=== PATIENT | female | born 1935 | race African-American/Black ===

== ENCOUNTER → 2016-11-29 | Outpatient (CLI) | payer MEDICARE ==
[2014-09-20 00:53] VITALS: BP 186/86
--- NOTE | 2016-11-29 14:29 | KCIC ---
EXAM: Bilateral screening mammogram. HISTORY: 80-year-old female presents for screening mammography. TECHNIQUE: Full-field digital craniocaudal and mediolateral oblique views of both breasts are obtained for evaluation. Computer aided detection with Fast OrientationD software version 9.3 was applied. COMPARISON: 11/25/2015, 11/23/2014, 11/20/2013 BREAST PARENCHYMAL DENSITY: Level B - Scattered fibroglandular densities. FINDINGS: There is no new suspicious mass or architectural distortion. There is stable focal asymmetry within the lateral left breast. There is stable nodularity containing clustered calcifications within the retroareolar aspect of the left breast. IMPRESSION: BI-RADS Category 2: Benign finding(s). RECOMMENDATION: Annual mammography is recommended. If your mammogram demonstrates that you have dense breast tissue, which could hide abnormalities, and if you have other risk factors for breast cancer that have been identified, you might benefit from supplemental screening tests that may be suggested by your ordering physician. Dense breast tissue, in and of itself, is a relatively common condition. This information is not provided to cause undue concern, but rather to raise your awareness and to promote discussion with your physician regarding the presence of other risk factors, in addition to dense breast tissue. A report of your mammography results will be sent to you and your physician. You should contact your physician if you have any questions or concerns regarding this report. Mammography is a sensitive method for finding small breast cancers, but it does not detect them all and is not a substitute for careful clinical examination. A negative mammogram does not negate a clinically suspicious finding and should not result in delay in biopsying a clinically suspicious abnormality. PQRS compliance statement - Patient information was entered into a reminder system with a target due date for the next mammogram. "Our facility is accredited by the [employer] Mammography [employer]." Electronically signed by: Carlyn Marina MD (11/29/2016 2:26 PM) [facility]
== END | disposition home or self-care (01) ==
LOC: KCIC MAMMO 13:40
PROVIDERS: ATTEND Family Medicine
DX: Z12.31 Encounter for screening mammogram for malignant neoplasm of breast (principal)
CPT/HCPCS: G0202; 77067

== ENCOUNTER 2017-01-05 23:53 | Emergency (ER) | payer MEDICARE ==
[~2017-01-05] VITALS: Ht 167.6 cm; Wt 83.9 kg
--- NOTE | 2017-01-06 01:15 | PHYS DOC ---
Past Medical History Past Medical History: Arthritis, Diabetes-Type II, Hypertension, Other Additional Past Medical Histor: DVT, shingles Past Surgical History: Cholecystectomy, Hysterectomy Alcohol Use: None Drug Use: None Adult General Chief Complaint Chief Complaint: MECHANICAL FALL HPI HPI Patient is a 81 year old female who presents with complaint of mild headache after suffering a fall earlier today. Patient states that at approximately 3:30 PM the patient suffered a mechanical fall when she turned too quickly and tripped in her home. Patient states that she hit the right side of her face on a desk as she fell. Patient denies loss of consciousness. Patient states that she has an abrasion to the right cheek. Patient states that she has pain along the side of her neck but denies any pain in her cervical spine. Patient states that she also initially had chest pain from the fall which she attributed to the jarring nature of the fall. Patient however states that her chest feels better at this time and she denies any other injuries. The patient states she came to the emergency department tonight his family members urged her to come in to get checked. Patient does admit that she has mild headache at this time. Patient has not taken any medications for her symptoms. Review of Systems Review of Systems Constitutional: Denies fever or chills [] Eyes: Denies change in visual acuity, redness, or eye pain [] HENT: Facial abrasion, denies nasal congestion or sore throat [] Respiratory: Denies cough or shortness of breath [] Cardiovascular: Denies chest pain or edema[] GI: Denies abdominal pain, nausea, vomiting, bloody stools or diarrhea [] : Denies dysuria or hematuria [] Musculoskeletal: Denies back pain or joint pain [] Integument: Denies rash or skin lesions [] Neurologic: Headache, denies focal weakness or sensory changes [] All other systems were reviewed and found to be within normal limits, except as documented in this note. Allergies Allergies Allergies Coded Allergies Type Severity Reaction Last Updated Verified No Known Drug Allergies 04/21/13 No Physical Exam Physical Exam Constitutional: Alert, afebrile, no acute distress. [] HENT: Normocephalic, 1 cm facial abrasion overlying right zygoma, external ears normal, oropharynx moist, no oral exudates, nose normal. [] Eyes: PERRLA, EOMI, conjunctiva normal, no discharge. [] Neck: Normal range of motion, no midline tenderness, right paraspinous muscle tenderness along the distribution of trapezius muscle, supple, no stridor. [] Cardiovascular:Heart rate regular rhythm, no murmur [] Lungs & Thorax: Bilateral breath sounds clear to auscultation [] Abdomen: Bowel sounds normal, soft, no tenderness, no masses, no pulsatile masses. [] Skin: Warm, dry, no erythema, no rash. [] Back: No tenderness, no CVA tenderness. [] Extremities: No tenderness, no cyanosis, no clubbing, ROM intact, no edema. [] Neurologic: Alert and oriented X 3, normal motor function, normal sensory function, no focal deficits noted. [] Current Patient Data Vital Signs Vital Signs Date Time Temp Pulse Resp B/P (MAP) Pulse Ox O2 Delivery O2 Flow Rate FiO2 01/06/17 00:30 98.2 88 18 203/95 (131) 98 Room Air 98.2 EKG EKG Interpreted by me: Heart rate 83, sinus rhythm, prolonged [place] interval, leftward axis, no acute ST/T-wave abnormalities present[] Radiology/Procedures Radiology/Procedures [facility] [address] [place] [address] IMAGING REPORT Signed PATIENT: JASIEL ABBOTT ACCOUNT: [id number] : 1935 LOCATION: ER AGE: 81 SEX: F EXAM STATUS: REG ER ORD. PHYSICIAN: JULIUS AGUILAR MD REASON: fall, headache PROCEDURE: CT HEAD WO CONTRAST INDICATION: headache after fall COMPARISON: None. TECHNIQUE: Axial CT images obtained through the head without intravenous contrast. One or more of the following individualized dose reduction techniques were utilized for this examination: 1. Automated exposure control; 2. Adjustment of the mA and/or kV according to patient size; 3. Use of iterative reconstruction technique. FINDINGS: No intracranial hemorrhage. No midline shift. Basal cisterns patents. Ventricles and sulci are globally prominent. No acute osseous abnormality. Orbits and paranasal sinuses unremarkable. Scattered foci of low attenuation within the white matter. IMPRESSION: 1. No acute intracranial hemorrhage. 2. Scattered regions of low attenuation within the white matter. Non-specific in nature but frequently secondary to chronic small vessel ischemic disease. 3. Prominence of ventricles and sulci which is frequently secondary to age related volume loss. Electronically signed by: Terry Murphy MD (01/06/2017 1:57 AM) [facility] DICTATED and SIGNED BY: TERRY MURPHY MD DATE: 01/06/17 0152 CC: JULIUS AGUILAR MD; SUSHILA QUINTANILLA MD ~ [] Course & Med Decision Making Course & Med Decision Making Pertinent Labs and Imaging studies reviewed. (See chart for details) Patient's CT imaging negative. Patient appears well and does not have evidence of significant traumatic brain injury. Advised patient to continue with Tylenol as needed for muscle pains. Advise follow-up with primary doctor in 3-5 days for reevaluation. Advised return emergency department for any worsening symptoms. Patient voiced understanding and in agreement with treatment plan. Dragon Disclaimer Dragon Disclaimer This electronic medical record was generated, in whole or in part, using a voice recognition dictation system. Departure Departure Impression: Primary Impression: Closed head injury without concussion Additional Impressions: Facial abrasion Chest wall pain Disposition: 01 HOME, SELF-CARE Condition: IMPROVED Referrals: SUSHILA QUINTANILLA MD (PCP) Patient Instructions: Abrasions, Head Injury, Adult Additional Instructions: Follow-up with your primary doctor in 3-5 days for reevaluation. Return to emergency department for any worsening symptoms. Problem Qualifiers Primary Impression: Closed head injury without concussion Encounter type: initial encounter Qualified Codes: S09.90XA - Unspecified injury of head, initial encounter Additional Impressions: Facial abrasion Encounter type: initial encounter Qualified Codes: S00.81XA - Abrasion of other part of head, initial encounter JULIUS AGUILAR MD Jan 06, 2017 01:15
--- NOTE | 2017-01-06 02:01 | RAD ---
INDICATION: headache after fall COMPARISON: None. TECHNIQUE: Axial CT images obtained through the head without intravenous contrast. One or more of the following individualized dose reduction techniques were utilized for this examination: 1. Automated exposure control; 2. Adjustment of the mA and/or kV according to patient size; 3. Use of iterative reconstruction technique. FINDINGS: No intracranial hemorrhage. No midline shift. Basal cisterns patents. Ventricles and sulci are globally prominent. No acute osseous abnormality. Orbits and paranasal sinuses unremarkable. Scattered foci of low attenuation within the white matter. IMPRESSION: 1. No acute intracranial hemorrhage. 2. Scattered regions of low attenuation within the white matter. Non-specific in nature but frequently secondary to chronic small vessel ischemic disease. 3. Prominence of ventricles and sulci which is frequently secondary to age related volume loss. Electronically signed by: Sanket Vail MD (01/06/2017 1:57 AM) [facility]
[2017-01-06 02:24] VITALS: BP 118/60
[2017-01-06] MEDS ORDERED: ACETAMINOPHEN 325 MG TABLET. PO ONE (02:30)
--- NOTE | 2017-01-06 08:03 | EKG ---
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
== END 2017-01-06 02:44 | disposition home or self-care (01) ==
LOC: ER 23:53
DX: S00.81XA Abrasion of other part of head, initial encounter (principal); R07.89 Other chest pain; E11.9 Type 2 diabetes mellitus without complications; I10 Essential (primary) hypertension; Z90.710 Acquired absence of both cervix and uterus; Z90.49 Acquired absence of other specified parts of digestive tract; Z86.718 Personal history of other venous thrombosis and embolism; W01.0XXA Fall on same level from slipping, tripping and stumbling without subsequent striking against object, initial encounter; Y93.89 Activity, other specified; Y99.8 Other external cause status; Y92.099 Unspecified place in other non-institutional residence as the place of occurrence of the external cause
CPT/HCPCS: 70450; 93005; 99284-25

== ENCOUNTER 2017-01-23 16:26 | Inpatient (IN) | payer MEDICARE ==
[~2017-01-23] VITALS: Ht 167.6 cm; Wt 80.3 kg
--- NOTE | 2017-01-23 16:30 | PHYS DOC ---
Past Medical History Past Medical History: Arthritis, Diabetes-Type II, Hypertension, Other Additional Past Medical Histor: DVT, shingles Past Surgical History: Cholecystectomy, Hysterectomy Alcohol Use: None Drug Use: None Adult General Chief Complaint Chief Complaint: LOWER EXT PAIN [facility] HPI Patient is a 81 year old -[place] female who presents with substernal chest heaviness and dyspnea on exertion with right leg swelling since Sunday. She denies any nausea vomiting or diaphoresis associate with this. She states when she was up a flight of steps she feels short of breath. She tried to get into her primary care physician today but was unable to and they told her to go to the ER to make sure she didn't have a blood clot in her leg. Review of Systems Review of Systems Constitutional: Denies fever or chills [] Eyes: Denies change in visual acuity, redness, or eye pain [] HENT: Denies nasal congestion or sore throat [] Respiratory: Denies cough, positive for or shortness of breath on exertion Cardiovascular: No additional information not addressed in HPI [] GI: Denies abdominal pain, nausea, vomiting, bloody stools or diarrhea [] : Denies dysuria or hematuria [] Musculoskeletal: Denies back pain or joint pain [] Integument: Denies rash or skin lesions [] Neurologic: Denies headache, focal weakness or sensory changes [] Endocrine: Denies polyuria or polydipsia [] All other systems were reviewed and found to be within normal limits, except as documented in this note. Current Medications Current Medications Current Medications Medications (Trade) Dose Ordered Sig/Aspen Start Time Stop Time Status Last Admin Dose Admin Info (Do NOT chart on this entry -- for MONITORING) 1 each PRN DAILY PRN 01/23/17 19:45 01/25/17 19:44 Iohexol (Omnipaque 300 Mg/ml) 60 ml 1X ONCE 01/23/17 20:00 01/23/17 20:01 DC 01/23/17 20:22 60 ML Allergies Allergies Allergies Coded Allergies Type Severity Reaction Last Updated Verified indomethacin Allergy Severe Shortness of Air 01/23/17 Yes Physical Exam Physical Exam Constitutional: Well developed, well nourished, no acute distress, non-toxic appearance. [] HENT: Normocephalic, atraumatic, bilateral external ears normal, oropharynx moist, no oral exudates, nose normal. [] Eyes: PERRLA, EOMI, conjunctiva normal, no discharge. [] Neck: Normal range of motion, no tenderness, supple, no stridor. [] Cardiovascular:Heart rate regular rhythm, no murmur [] Lungs & Thorax: Bilateral breath sounds clear to auscultation [] Abdomen: Bowel sounds normal, soft, no tenderness, no masses, no pulsatile masses. [] Skin: Warm, dry, no erythema, no rash. [] Back: No tenderness, no CVA tenderness. [] Extremities: No tenderness, no cyanosis, no clubbing, ROM intact, 1+ right lower extremity edema around her ankle Neurologic: Alert and oriented X 3, normal motor function, normal sensory function, no focal deficits noted. [] Psychologic: Affect normal, judgement normal, mood normal. [] Current Patient Data Vital Signs Vital Signs Date Time Temp Pulse Resp B/P (MAP) Pulse Ox O2 Delivery O2 Flow Rate FiO2 01/23/17 19:45 86 18 169/79 (109) 98 Room Air 01/23/17 16:46 98.6 98.6 Lab Values Laboratory Tests Test 01/23/17 17:20 01/23/17 17:56 01/23/17 18:00 White Blood Count 5.7 x10^3/uL (4.0-11.0) Red Blood Count 4.89 x10^6/uL (3.50-5.40) Hemoglobin 12.9 g/dL (12.0-15.5) Hematocrit 40.1 % (36.0-47.0) Mean Corpuscular Volume 82 fL (79-100) Mean Corpuscular Hemoglobin 26 pg (25-35) Mean Corpuscular Hemoglobin Concent 32 g/dL (31-37) Red Cell Distribution Width 14.7 % (11.5-14.5) H Platelet Count 197 x10^3/uL (140-400) Neutrophils (%) (Auto) 54 % (31-73) Lymphocytes (%) (Auto) 30 % (24-48) Monocytes (%) (Auto) 14 % (0-9) H Eosinophils (%) (Auto) 2 % (0-3) Basophils (%) (Auto) 1 % (0-3) Neutrophils # (Auto) 3.0 x10^3uL (1.8-7.7) Lymphocytes # (Auto) 1.7 x10^3/uL (1.0-4.8) Monocytes # (Auto) 0.8 x10^3/uL (0.0-1.1) Eosinophils # (Auto) 0.1 x10^3/uL (0.0-0.7) Basophils # (Auto) 0.0 x10^3/uL (0.0-0.2) Prothrombin Time 12.2 SEC (11.7-14.0) Prothrombin Time INR 1.0 (0.8-1.1) Sodium Level 136 mmol/L (136-145) Potassium Level 3.9 mmol/L (3.5-5.1) Chloride Level 98 mmol/L (98-107) Carbon Dioxide Level 26 mmol/L (21-32) Anion Gap 12 (6-14) Blood Urea Nitrogen 16 mg/dL (7-20) Creatinine 1.1 mg/dL (0.6-1.0) H Estimated GFR (Cockcroft-Gault) 57.5 Glucose Level 112 mg/dL (70-99) H Calcium Level 10.0 mg/dL (8.5-10.1) Magnesium Level 1.8 mg/dL (1.8-2.4) Total Bilirubin 0.3 mg/dL (0.2-1.0) Direct Bilirubin 0.1 mg/dL (0.0-0.2) Aspartate Amino Transferase (AST) 15 U/L (15-37) Alanine Aminotransferase (ALT) 15 U/L (14-59) Alkaline Phosphatase 37 U/L (46-116) L Creatine Kinase 94 U/L (26-192) Creatine Kinase MB (Mass) 0.5 ng/mL (0.0-3.6) Creatine Kinase MB Relative Index 0.5 % (0-4) Troponin I Quantitative < 0.017 ng/mL (0.000-0.055) LN-Upf-L-Type Natriuretic Peptide 53 pg/mL (0-449) Total Protein 7.8 g/dL (6.4-8.2) Albumin 3.8 g/dL (3.4-5.0) Lipase 248 U/L (73-393) Thyroid Stimulating Hormone (TSH) 2.064 uIU/mL (0.358-3.74) D-Dimer (Alanna) 3.93 ug/mlFEU (0.00-0.50) H Urine Collection Type Unknown Urine Color Yellow Urine Clarity Clear Urine pH 6.0 Urine Specific [place] 1.010 Urine Protein Negative mg/dL (NEG-TRACE) Urine Glucose (UA) Negative mg/dL (NEG) Urine Ketones (Stick) Negative mg/dL (NEG) Urine Blood Negative (NEG) Urine Nitrite Negative (NEG) Urine Bilirubin Negative (NEG) Urine Urobilinogen Dipstick 0.2 mg/dL (0.2 mg/dL) Urine Leukocyte Esterase Negative (NEG) Urine RBC Rare /HPF (0-2) Urine WBC Rare /HPF (0-4) Urine Squamous Epithelial Cells Mod /LPF Urine Bacteria Few /HPF (0-FEW) Urine Opiates Screen Neg (NEG) Urine Methadone Screen Neg (NEG) Urine Barbiturates Neg (NEG) Urine Phencyclidine Screen Neg (NEG) Urine Amphetamine/Methamphetamine Neg (NEG) Urine Benzodiazepines Screen Neg (NEG) Urine Cocaine Screen Neg (NEG) Urine Cannabinoids Screen Neg (NEG) Urine Ethyl Alcohol Neg (NEG) Laboratory Tests 01/23/17 17:20 Laboratory Tests 01/23/17 17:20 EKG EKG EKG shows sinus rhythm with rate of [address] elevations or concerning T-wave inversions, left axis deviation noted, QTC 427 ms, as interpreted by me. Radiology/Procedures Radiology/Procedures One view chest x-rays does not show any focal consolidations, bony abnormality's , pneumothorax, as interpreted by me. Chest x-ray similar to one that was performed on April 21, 2013 [facility] [address] [place] [address] IMAGING REPORT Signed PATIENT: JASIEL ABBOTT ACCOUNT: [id number] : 1935 LOCATION: ER AGE: 81 SEX: F EXAM STATUS: REG ER ORD. PHYSICIAN: SARA HAYNES MD REASON: r/o pe, ELEVATED D DIMER PROCEDURE: CT ANGIOGRAPHY CHEST CTA Chest with contrast: Clinical History: leg swelling, elevated d dimer, chest tightness, [id number] 60ml, no priors Shortness of breath. Axial helical images of the chest were obtained after the administration of 60 cc of Omni 300 and timed appropriately for a pulmonary arterial study. Conventional axial reconstruction was performed in addition to coronal, sagittal and bilateral oblique MIP (maximum intensity projection). This study was ordered to detect possible pulmonary embolism. There are no filling defects to suggest pulmonary embolism. The lungs and pleural margins are clear. There is no mediastinal or hilar lymphadenopathy. The thoracic aorta appears normal. Impression: 1. No evidence of pulmonary embolism. 2. No significant findings. PQRS Compliance Statement: One or more of the following individualized dose reduction techniques were utilized for this examination: 1. Automated exposure control 2. Adjustment of the mA and/or kV according to patient size 3. Use of iterative reconstruction technique Electronically signed by: Luisa Durant III, MD (01/23/2017 8:28 PM) [facility] DICTATED and SIGNED BY: LUISA DURANT III, MD DATE: 01/23/172024 CC: SARA HAYNES MD; SUSHILA QUINTANILLA MD ~ Impressions: Dyspnea on exertion Chest pain Diabetes type 2 Hypertension Course & Med Decision Making Course & Med Decision Making Pertinent Labs and Imaging studies reviewed. (See chart for details) EKG doesn't show any acute abnormality's, ultrasound of the right lower extremities also nonacute. D-dimer was elevated therefore underwent a CT angiogram which did not show any PE. Patient is being admitted for chest pain rule out. She has pain and swelling over her right ankle, she does not have any trauma that she can remember and only hurts when she is trying to walk on it in the posterior aspect. Dragon Disclaimer Dragon Disclaimer This electronic medical record was generated, in whole or in part, using a voice recognition dictation system. Departure Departure Impression: Primary Impression: Dyspnea Additional Impression: Chest pain Disposition: ADMITTED INPATIENT Admitting Physician: Brianna Adler Condition: STABLE Referrals: SUSHILA QUINTANILLA MD (PCP) Problem Qualifiers SARA HAYNES MD Jan 23, 2017 16:30
--- NOTE | 2017-01-23 17:13 | RAD ---
Right lower extremity venous ultrasound, 01/23/2017 : History: Right leg swelling Duplex evaluation including grayscale, color flow and spectral Doppler analysis was performed. The femoral and popliteal veins show no filling defects to suggest DVT. The visualized deep veins in the right calf are unremarkable. IMPRESSION: There is no sonographic evidence of deep vein thrombosis in the right lower extremity
[2017-01-23 17:37] LABS: BASO % 1 % (0-3); EOS % 2 % (0-3); HEMATOCRIT 40.1 % (36.0-47.0); HEMOGLOBIN 12.9 g/dL (12.0-15.5); LYMPH # 1.7 x10^3/uL (1.0-4.8); LYMPH % 30 % (24-48); MEAN CORPUSCULAR HEMOGLOBIN 26 pg (25-35); MEAN CORPUSCULAR HGB CONC 32 g/dL (31-37); MEAN CORPUSCULAR VOLUME 82 fL (79-100); MONO % 14 % (0-9); NEUT % 54 % (31-73); PLATELET COUNT 197 x10^3/uL (140-400); RED BLOOD COUNT 4.89 x10^6/uL (3.50-5.40); RED CELL DISTRIBUTION WIDTH 14.7 % (11.5-14.5); WHITE BLOOD COUNT 5.7 x10^3/uL (4.0-11.0)
[2017-01-23 17:47] LABS: PROTHROMBIN TIME PATIENT 12.2 SEC (11.7-14.0)
[2017-01-23 18:02] LABS: CREATININE 1.1 mg/dL (0.6-1.0); GFR 57.5; POTASSIUM 3.9 mmol/L (3.5-5.1)
[2017-01-23 18:06] LABS: ALBUMIN 3.8 g/dL (3.4-5.0); DIRECT BILIRUBIN 0.1 mg/dL (0.0-0.2); MAGNESIUM 1.8 mg/dL (1.8-2.4); TOTAL BILIRUBIN 0.3 mg/dL (0.2-1.0); TOTAL PROTEIN 7.8 g/dL (6.4-8.2)
[2017-01-23 18:14] LABS: CKMB MASS 0.5 ng/mL (0.0-3.6)
[2017-01-23 18:21] LABS: BILIRUBIN,URINE NEGATIVE (NEG); GLUCOSE,URINE NEGATIVE (NEG); NITRITE,URINE NEGATIVE (NEG); PROTEIN,URINE NEGATIVE (NEG-TRACE); UROBILINOGEN,URINE 0.2 mg/dL (0.2 mg/dL)
[2017-01-23 18:30] LABS: BARBITURATES NEG (NEG); BENZODIAZEPINES NEG (NEG); CANNABINOIDS NEG (NEG); COCAINE NEG (NEG); METHADONE NEG (NEG); OPIATES NEG (NEG); PHENCYCLIDINE NEG (NEG)
[2017-01-23 18:39] LABS: BACTERIA,URINE FEW /HPF (0-FEW); RBC,URINE RARE /HPF (0-2); SQUAMOUS EPITHELIAL CELL,UR MOD /LPF; WBC,URINE RARE /HPF (0-4)
[2017-01-23] MEDS ORDERED: CONTRAST GIVEN MC PRN (19:45)
[2017-01-23] MEDS ORDERED: IOHEXOL 300 MG/ML 100ML VIAL. IV ONE (20:00)
--- NOTE | 2017-01-23 20:32 | RAD ---
CTA Chest with contrast: Clinical History: leg swelling, elevated d dimer, chest tightness, [id number] 60ml, no priors Shortness of breath. Axial helical images of the chest were obtained after the administration of 60 cc of Omni 300 and timed appropriately for a pulmonary arterial study. Conventional axial reconstruction was performed in addition to coronal, sagittal and bilateral oblique MIP (maximum intensity projection). This study was ordered to detect possible pulmonary embolism. There are no filling defects to suggest pulmonary embolism. The lungs and pleural margins are clear. There is no mediastinal or hilar lymphadenopathy. The thoracic aorta appears normal. Impression: 1. No evidence of pulmonary embolism. 2. No significant findings. PQRS Compliance Statement: One or more of the following individualized dose reduction techniques were utilized for this examination: 1. Automated exposure control 2. Adjustment of the mA and/or kV according to patient size 3. Use of iterative reconstruction technique Electronically signed by: Zack James III, MD (01/23/2017 8:28 PM) [facility]
[2017-01-23] MEDS ORDERED: ONDANSETRON PF 4 MG/2 ML VIAL. IV PRN (20:45)
[2017-01-23 23:30] VITALS: BP 146/63
[2017-01-24] MEDS ORDERED: FLUT9.9S NS (01:04)
[2017-01-24] MEDS ORDERED: ESTR42.53 VG (01:04)
[2017-01-24] MEDS ORDERED: LISI10TA2 PO (01:04)
[2017-01-24] MEDS ORDERED: LACT1CAP6 PO (01:04)
[2017-01-24] MEDS ORDERED: DESO60OI7 TP (01:04)
[2017-01-24] MEDS ORDERED: NYST15OI TP (01:04)
[2017-01-24] MEDS ORDERED: CALC1TAB PO (01:04)
[2017-01-24] MEDS ORDERED: SITA1TAB11 PO (01:04)
[2017-01-24] MEDS ORDERED: OMEP2.5S2 PO (01:04)
[2017-01-24] MEDS ORDERED: CHOL100013 PO (01:04)
[2017-01-24] MEDS ORDERED: MULT-650 PO (01:04)
[2017-01-24] MEDS ORDERED: ASPI-482 PO (01:04)
[2017-01-24 03:00] VITALS: BP 124/55
[2017-01-24 03:07] LABS: BASO # 0.1 x10^3/uL (0.0-0.2); BASO % 1 % (0-3); EOS % 2 % (0-3); HEMATOCRIT 37.3 % (36.0-47.0); HEMOGLOBIN 12.2 g/dL (12.0-15.5); LYMPH % 33 % (24-48); MEAN CORPUSCULAR HEMOGLOBIN 27 pg (25-35); MEAN CORPUSCULAR HGB CONC 33 g/dL (31-37); MEAN CORPUSCULAR VOLUME 81 fL (79-100); MONO % 13 % (0-9); NEUT % 51 % (31-73); PLATELET COUNT 185 x10^3/uL (140-400); RED BLOOD COUNT 4.59 x10^6/uL (3.50-5.40); RED CELL DISTRIBUTION WIDTH 14.4 % (11.5-14.5)
[2017-01-24 03:24] LABS: CALCIUM 9.5 mg/dL (8.5-10.1); CREATININE 1.1 mg/dL (0.6-1.0); GFR 57.5; POTASSIUM 3.5 mmol/L (3.5-5.1)
--- NOTE | 2017-01-24 06:55 | EKG ---
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
[2017-01-24 07:00] VITALS: BP 123/69
[2017-01-24] MEDS: INSULIN ASPART 300 UNITS/3 ML INSULN.PEN SQ SCH ×2 (08:00→12:00)
[2017-01-24] MEDS ORDERED: DEXTROSE 50% 25 GM / 50ML DISP.SYRIN. IV PRN (08:00)
--- NOTE | 2017-01-24 08:07 | PDOC1 ---
History and Physical Date of Admission Date of Admission DATE: 01/23/17 Identification/Chief Complaint Chief Complaint Foot swelling Problems: Source Source: Patient History of Present Illness History of Present Illness Pt says that she was told to come to the emergency room for lower extremity swelling when she could not get an appointment to see Dr. Reyna yesterday. Pt says that swelling started this Sunday. Swelling was in the achilles area; improved today but pt says it gets worse when she is on her feet. The achilles area is tender to touch and tender to walk. Pt has not had any other symptoms or major complaints other than head pressure that she believes is related to her sinuses. She does have some long standing dyspnea on exertion and was admitted for observation for possible cardiac causes. Past Medical History Cardiovascular: HTN Pulmonary: No pertinent hx GI: GERD Heme/Onc: No pertinent hx Hepatobiliary: No pertinent hx Psych: No pertinent hx Musculoskeletal: Osteoarthritis Rheumatologic: Gout Infectious disease: No pertinent hx ENT: Allergic Rhinitis Renal/: No pertinent hx Endocrine: Diabetes Dermatology: No pertinent hx Past Surgical History Past Surgical History: Cholecystectomy, Hysterectomy, Other (anal fissure, right great toe, vein stripping) Family History Family History: Cancer (colon), Diabetes, Stroke Social History Smoke: No ALCOHOL: none Drugs: None Current Problem List Problem List Problems Medical Problems: (1) Chest pain Status: Acute (2) Dyspnea Status: Acute Problems: Current Medications Current Medications Current Medications Iohexol (Omnipaque 300 Mg/ml) 60 ml 1X ONCE IV Last administered on t 20:22; Start 01/23/17 at 20:00; Stop 01/23/17 at 20:01; Status DC Info (Do NOT chart on this entry -- for MONITORING) 1 each PRN DAILY PRN MC SEE COMMENTS; Start 01/23/17 at 19:45; Stop 01/25/17 at 19:44 Ondansetron HCl (Zofran) 4 mg PRN Q8HRS PRN IV NAUSEA/VOMITING; Start at 20:45; Stop 01/24/17 at 20:44 Active Scripts Active Reported Flonase Allergy Relief (Fluticasone Propionate) 9.9 Ml [place].susp 2 Sprays NS DAILY Nystatin 15 Gm Oint...g. 15 Gm TP BID Desoximetasone 60 Gm Oint...g. 60 Gm TP HS Centrum Silver Women Tablet (Multivits-Min/Iron/FA/Lutein) 1 Each Tablet 1 Each PO DAILY Caltrate 600 + D Tablet (Calcium Carbonate/Vitamin D3) 1 Each Tablet 1 Each PO Janumet 50-1,000 Mg Tablet (Sitagliptin Phos/Metformin Hcl) 1 Each Tablet 1 Tab PO BID Estrace (Estradiol) 42.5 Gm Cream.appl 1 Gm VG 3X/WEEK Probiotic (Lactobacillus Acidophilus) 1 Each Capsule 1 Each PO Vitamin D (Cholecalciferol (Vitamin D3)) 1,000 Unit Capsule 1 Cap PO DAILY Aspir 81 (Aspirin) 81 Mg Tablet.dr 81 Mg PO DAILY Prilosec (Omeprazole Magnesium) 2.5 Mg Suspdr.pkt 2.5 Mg PO DAILY Lisinopril 10 Mg Tablet 12.5 Mg PO DAILY Allergies Allergies: Coded Allergies: indomethacin (Verified Allergy, Severe, Shortness of Air, 01/23/17) Sulfa (Sulfonamide Antibiotics) (Verified Allergy, Intermediate, Rash, ) ROS General: No: Chills, Night Sweats PSYCHOLOGICAL ROS: No: Anxiety, Depression Eyes: No Decreased vision, No Eye Pain HEENT: YES: Heacaches, No: Nasal congestion, Sore Throat ALLERGY AND IMMUNOLOGY: YES: Post Nasal Drip, No: Hives Hematological and Lymphatic: No: Bleeding Problems, Blood Clots Respiratory: No: Cough, Shortness of breath Cardiovascular: No Chest Pain, No Palpitations, No Edema Gastrointestinal: No Nausea, No Vomiting, No Abdominal Pain, No Diarrhea, No Constipation Genitourinary: No Dysuria, No Urgency Musculoskeletal: Yes Joint Pain, Yes Muscle Pain Neurological: No Impaired Coord/balance, No Numbness/Tingling, No Weakness Skin: No Rash, No Skin Lesion Changes Physical Exam General: Alert, Oriented X3, Cooperative, No acute distress HEENT: Atraumatic, PERRLA, EOMI, Mucous membr. moist/pink Lungs: Clear to auscultation, Normal air movement Heart: RRR, no thrills, no rubs, no gallops, no murmurs Abdomen: Normal bowel sounds, Soft, No tenderness, No hepatosplenomegaly Extremities: No clubbing, No cyanosis, No edema, Normal pulses Skin: No rashes, No breakdown, No significant lesion Neuro: Normal speech, Cranial nerves 3-12 NL Psych/Mental Status: Mental status NL, Mood NL Vitals Vitals Vital Signs Date Time Temp Pulse Resp B/P (MAP) Pulse Ox O2 Delivery O2 Flow Rate FiO2 01/24/17 07:00 97.9 73 18 123/69 (87) 96 Room Air 97.9 Labs Labs Laboratory Tests Test 01/23/17 17:20 01/23/17 17:56 01/23/17 18:00 01/24/17 02:35 White Blood Count 5.7 x10^3/uL (4.0-11.0) 6.0 x10^3/uL (4.0-11.0) Red Blood Count 4.89 x10^6/uL (3.50-5.40) 4.59 x10^6/uL (3.50-5.40) Hemoglobin 12.9 g/dL (12.0-15.5) 12.2 g/dL (12.0-15.5) Hematocrit 40.1 % (36.0-47.0) 37.3 % (36.0-47.0) Mean Corpuscular Volume 82 fL (79-100) 81 fL (79-100) Mean Corpuscular Hemoglobin 26 pg (25-35) 27 pg (25-35) Mean Corpuscular Hemoglobin Concent 32 g/dL (31-37) 33 g/dL (31-37) Red Cell Distribution Width 14.7 % (11.5-14.5) 14.4 % (11.5-14.5) Platelet Count 197 x10^3/uL (140-400) 185 x10^3/uL (140-400) Neutrophils (%) (Auto) 54 % (31-73) 51 % (31-73) Lymphocytes (%) (Auto) 30 % (24-48) 33 % (24-48) Monocytes (%) (Auto) 14 % (0-9) 13 % (0-9) Eosinophils (%) (Auto) 2 % (0-3) 2 % (0-3) Basophils (%) (Auto) 1 % (0-3) 1 % (0-3) Neutrophils # (Auto) 3.0 x10^3uL (1.8-7.7) 3.0 x10^3uL (1.8-7.7) Lymphocytes # (Auto) 1.7 x10^3/uL (1.0-4.8) 2.0 x10^3/uL (1.0-4.8) Monocytes # (Auto) 0.8 x10^3/uL (0.0-1.1) 0.8 x10^3/uL (0.0-1.1) Eosinophils # (Auto) 0.1 x10^3/uL (0.0-0.7) 0.1 x10^3/uL (0.0-0.7) Basophils # (Auto) 0.0 x10^3/uL (0.0-0.2) 0.1 x10^3/uL (0.0-0.2) Prothrombin Time 12.2 SEC (11.7-14.0) Prothromb Time International Ratio 1.0 (0.8-1.1) Sodium Level 136 mmol/L (136-145) 138 mmol/L (136-145) Potassium Level 3.9 mmol/L (3.5-5.1) 3.5 mmol/L (3.5-5.1) Chloride Level 98 mmol/L (98-107) 102 mmol/L (98-107) Carbon Dioxide Level 26 mmol/L (21-32) 29 mmol/L (21-32) Anion Gap 12 (6-14) 7 (6-14) Blood Urea Nitrogen 16 mg/dL (7-20) 16 mg/dL (7-20) Creatinine 1.1 mg/dL (0.6-1.0) 1.1 mg/dL (0.6-1.0) Estimated GFR (Cockcroft-Gault) 57.5 57.5 Glucose Level 112 mg/dL (70-99) 182 mg/dL (70-99) Calcium Level 10.0 mg/dL (8.5-10.1) 9.5 mg/dL (8.5-10.1) Magnesium Level 1.8 mg/dL (1.8-2.4) Total Bilirubin 0.3 mg/dL (0.2-1.0) Direct Bilirubin 0.1 mg/dL (0.0-0.2) Aspartate Amino Transf (AST/SGOT) 15 U/L (15-37) Alanine Aminotransferase (ALT/SGPT) 15 U/L (14-59) Alkaline Phosphatase 37 U/L (46-116) Creatine Kinase 94 U/L (26-192) Creatine Kinase MB (Mass) 0.5 ng/mL (0.0-3.6) Creatine Kinase MB Relative Index 0.5 % (0-4) Troponin I Quantitative < 0.017 ng/mL (0.000-0.055) < 0.017 ng/mL (0.000-0.055) RP-Fbb-Q-Type Natriuretic Peptide 53 pg/mL (0-449) Total Protein 7.8 g/dL (6.4-8.2) Albumin 3.8 g/dL (3.4-5.0) Lipase 248 U/L (73-393) Thyroid Stimulating Hormone (TSH) 2.064 uIU/mL (0.358-3.74) D-Dimer (Alanna) 3.93 ug/mlFEU (0.00-0.50) Urine Collection Type Unknown Urine Color Yellow Urine Clarity Clear Urine pH 6.0 Urine Specific [place] 1.010 Urine Protein Negative mg/dL (NEG-TRACE) Urine Glucose (UA) Negative mg/dL (NEG) Urine Ketones (Stick) Negative mg/dL (NEG) Urine Blood Negative (NEG) Urine Nitrite Negative (NEG) Urine Bilirubin Negative (NEG) Urine Urobilinogen Dipstick 0.2 mg/dL (0.2 mg/dL) Urine Leukocyte Esterase Negative (NEG) Urine RBC Rare /HPF (0-2) Urine WBC Rare /HPF (0-4) Urine Squamous Epithelial Cells Mod /LPF Urine Bacteria Few /HPF (0-FEW) Urine Opiates Screen Neg (NEG) Urine Methadone Screen Neg (NEG) Urine Barbiturates Neg (NEG) Urine Phencyclidine Screen Neg (NEG) Urine Amphetamine/Methamphetamine Neg (NEG) Urine Benzodiazepines Screen Neg (NEG) Urine Cocaine Screen Neg (NEG) Urine Cannabinoids Screen Neg (NEG) Urine Ethyl Alcohol Neg (NEG) Test 01/24/17 07:22 Glucose (Fingerstick) 101 mg/dL (70-99) Laboratory Tests Test 01/23/17 17:20 01/23/17 17:56 01/23/17 18:00 01/24/17 02:35 White Blood Count 5.7 x10^3/uL (4.0-11.0) 6.0 x10^3/uL (4.0-11.0) Red Blood Count 4.89 x10^6/uL (3.50-5.40) 4.59 x10^6/uL (3.50-5.40) Hemoglobin 12.9 g/dL (12.0-15.5) 12.2 g/dL (12.0-15.5) Hematocrit 40.1 % (36.0-47.0) 37.3 % (36.0-47.0) Mean Corpuscular Volume 82 fL (79-100) 81 fL (79-100) Mean Corpuscular Hemoglobin 26 pg (25-35) 27 pg (25-35) Mean Corpuscular Hemoglobin Concent 32 g/dL (31-37) 33 g/dL (31-37) Red Cell Distribution Width 14.7 % (11.5-14.5) 14.4 % (11.5-14.5) Platelet Count 197 x10^3/uL (140-400) 185 x10^3/uL (140-400) Neutrophils (%) (Auto) 54 % (31-73) 51 % (31-73) Lymphocytes (%) (Auto) 30 % (24-48) 33 % (24-48) Monocytes (%) (Auto) 14 % (0-9) 13 % (0-9) Eosinophils (%) (Auto) 2 % (0-3) 2 % (0-3) Basophils (%) (Auto) 1 % (0-3) 1 % (0-3) Neutrophils # (Auto) 3.0 x10^3uL (1.8-7.7) 3.0 x10^3uL (1.8-7.7) Lymphocytes # (Auto) 1.7 x10^3/uL (1.0-4.8) 2.0 x10^3/uL (1.0-4.8) Monocytes # (Auto) 0.8 x10^3/uL (0.0-1.1) 0.8 x10^3/uL (0.0-1.1) Eosinophils # (Auto) 0.1 x10^3/uL (0.0-0.7) 0.1 x10^3/uL (0.0-0.7) Basophils # (Auto) 0.0 x10^3/uL (0.0-0.2) 0.1 x10^3/uL (0.0-0.2) Prothrombin Time 12.2 SEC (11.7-14.0) Prothromb Time International Ratio 1.0 (0.8-1.1) Sodium Level 136 mmol/L (136-145) 138 mmol/L (136-145) Potassium Level 3.9 mmol/L (3.5-5.1) 3.5 mmol/L (3.5-5.1) Chloride Level 98 mmol/L (98-107) 102 mmol/L (98-107) Carbon Dioxide Level 26 mmol/L (21-32) 29 mmol/L (21-32) Anion Gap 12 (6-14) 7 (6-14) Blood Urea Nitrogen 16 mg/dL (7-20) 16 mg/dL (7-20) Creatinine 1.1 mg/dL (0.6-1.0) 1.1 mg/dL (0.6-1.0) Estimated GFR (Cockcroft-Gault) 57.5 57.5 Glucose Level 112 mg/dL (70-99) 182 mg/dL (70-99) Calcium Level 10.0 mg/dL (8.5-10.1) 9.5 mg/dL (8.5-10.1) Magnesium Level 1.8 mg/dL (1.8-2.4) Total Bilirubin 0.3 mg/dL (0.2-1.0) Direct Bilirubin 0.1 mg/dL (0.0-0.2) Aspartate Amino Transf (AST/SGOT) 15 U/L (15-37) Alanine Aminotransferase (ALT/SGPT) 15 U/L (14-59) Alkaline Phosphatase 37 U/L (46-116) Creatine Kinase 94 U/L (26-192) Creatine Kinase MB (Mass) 0.5 ng/mL (0.0-3.6) Creatine Kinase MB Relative Index 0.5 % (0-4) Troponin I Quantitative < 0.017 ng/mL (0.000-0.055) < 0.017 ng/mL (0.000-0.055) ZS-Ctm-L-Type Natriuretic Peptide 53 pg/mL (0-449) Total Protein 7.8 g/dL (6.4-8.2) Albumin 3.8 g/dL (3.4-5.0) Lipase 248 U/L (73-393) Thyroid Stimulating Hormone (TSH) 2.064 uIU/mL (0.358-3.74) D-Dimer (Alanna) 3.93 ug/mlFEU (0.00-0.50) Urine Collection Type Unknown Urine Color Yellow Urine Clarity Clear Urine pH 6.0 Urine Specific [place] 1.010 Urine Protein Negative mg/dL (NEG-TRACE) Urine Glucose (UA) Negative mg/dL (NEG) Urine Ketones (Stick) Negative mg/dL (NEG) Urine Blood Negative (NEG) Urine Nitrite Negative (NEG) Urine Bilirubin Negative (NEG) Urine Urobilinogen Dipstick 0.2 mg/dL (0.2 mg/dL) Urine Leukocyte Esterase Negative (NEG) Urine RBC Rare /HPF (0-2) Urine WBC Rare /HPF (0-4) Urine Squamous Epithelial Cells Mod /LPF Urine Bacteria Few /HPF (0-FEW) Urine Opiates Screen Neg (NEG) Urine Methadone Screen Neg (NEG) Urine Barbiturates Neg (NEG) Urine Phencyclidine Screen Neg (NEG) Urine Amphetamine/Methamphetamine Neg (NEG) Urine Benzodiazepines Screen Neg (NEG) Urine Cocaine Screen Neg (NEG) Urine Cannabinoids Screen Neg (NEG) Urine Ethyl Alcohol Neg (NEG) Test 01/24/17 07:22 Glucose (Fingerstick) 101 mg/dL (70-99) VTE Prophylaxis Ordered VTE Prophylaxis Devices: Yes VTE Pharmacological Prophylaxi: No Assessment/Plan Assessment/Plan Pt is a 81yo AAF admitted for cardiac rule out 1)Dyspnea on exertion- troponin x2 WNL, CT Chest did not show any evidence of PE nor CHF. Will discharge if final troponin WNL 2)Ankle swelling- 2/2 achilles tendonitis 3)HTN- well controlled. Will continue pt's HCTZ/Lisinopril 25/10mg 4)DM2- fasting blood sugar elevated this morning. Pt is normally on Janumet. Will continue Metformin for now and hold Januvia. SSI available 5)CKD- stable RUDY RUIZ MD Jan 24, 2017 08:07
[2017-01-24] MEDS ORDERED: PANTOPRAZOLE 40 MG TABLET.DR. PO SCH (08:30)
--- NOTE | 2017-01-24 08:35 | RAD ---
Portable chest, 01/23/2017: History: Chest pain Comparison is made to a study from 04/21/2013. The heart size and pulmonary vascularity are normal. There is mild tortuosity of the thoracic aorta. No pulmonary infiltrates are seen. There is no evidence of pleural fluid. Mild scattered degenerative changes are present in the spine. IMPRESSION: No acute cardiopulmonary abnormality is detected.
[2017-01-24] MEDS ORDERED: ASPIRIN ENTERIC COATED 81 MG TABLET.DR. PO SCH (09:00)
[2017-01-24] MEDS ORDERED: LISINOPRIL 10 MG TABLET PO SCH (09:00)
[2017-01-24] MEDS ORDERED: hydroCHLOROthiazide 12.5 MG CAPSULE PO SCH (09:00)
[2017-01-24 11:00] VITALS: BP 105/55
[2017-01-24] MEDS ORDERED: HYDR12.53 PO (14:07)
--- NOTE | 2017-01-24 14:09 | PDOC3 ---
Discharge Summary* Date of Admission: Jan 23, 2017 Date of Discharge: Jan 24, 2017 Admitting Diagnosis Dyspnea Status: Acute Problems: Final Diagnosis Dyspnea on exertion, achilles tendonitis, HTN, DM2, CKD, Elevated Ddimer CONSULTS None Procedures Lower extremity ultrasound- WNL CT Chest- WNL Brief Hospital Course Pt is a 81yo AAF admitted for cardiac rule out 1)Dyspnea on exertion- troponin x3 WNL, Elevated D-dimer (minimal), CT Chest did not show any evidence of PE nor CHF. Dyspnea has been chronic. DC'd for further workup and evaluation outpatient 2)Ankle swelling- 2/2 achilles tendonitis 3)HTN- well controlled. Will continue pt's HCTZ/Lisinopril 25/10mg 4)DM2- well controlled with HbA1C of 6.5 this admission. Pt discharged on normal medication of Janumet 5)CKD- Stage 2, stable Disposition/Orders: D/C to Home CONDITION AT DISCHARGE: Stable Diet: 2 gr sodium, Consistent Carbohydrate Scheduled Aspirin (Aspir 81), 81 MG PO DAILY, (Reported) Cholecalciferol (Vitamin D3) (Vitamin D), 1 CAP PO DAILY, (Reported) Desoximetasone (Desoximetasone), 60 GM TP HS, (Reported) Estradiol (Estrace), 1 GM VG 3X/WEEK, (Reported) Fluticasone Propionate (Flonase Allergy Relief), 2 SPRAYS NS DAILY, (Reported) Hydrochlorothiazide (Hydrochlorothiazide Capsule ), 12.5 MG PO DAILY Lisinopril (Lisinopril), 12.5 MG PO DAILY, (Reported) Multivits-Min/Iron/FA/Lutein (Centrum Silver Women Tablet), 1 EACH PO DAILY, ( Reported) Nystatin (Nystatin), 15 GM TP BID, (Reported) Omeprazole Magnesium (Prilosec), 2.5 MG PO DAILY, (Reported) Sitagliptin Phos/Metformin Hcl (Janumet 50-1,000 Mg Tablet), 1 TAB PO BID, ( Reported) Miscellaneous Medications Calcium Carbonate/Vitamin D3 (Caltrate 600 + D Tablet), 1 EACH PO, (Reported) Lactobacillus Acidophilus (Probiotic), 1 EACH PO, (Reported) PCP Follow up with Dr. Reyna within 2 weeks of discharge Time Spent Total time spent with patient [] minutes for coordination of care, counseling, and education. RUDY RUIZ MD Jan 24, 2017 14:09
== END 2017-01-24 15:15 | disposition home or self-care (01) | DRG 558 ==
LOC: ER 16:26 → 5 SOUTH 19:40
PROVIDERS: ADMIT Family Medicine; ATTEND Family Medicine
DX: M76.60 Achilles tendinitis, unspecified leg (principal); E11.22 Type 2 diabetes mellitus with diabetic chronic kidney disease; E11.65 Type 2 diabetes mellitus with hyperglycemia; R07.9 Chest pain, unspecified; I12.9 Hypertensive chronic kidney disease with stage 1 through stage 4 chronic kidney disease, or unspecified chronic kidney disease; K21.9 Gastro-esophageal reflux disease without esophagitis; M10.9 Gout, unspecified; N18.9 Chronic kidney disease, unspecified; Z80.0 Family history of malignant neoplasm of digestive organs; Z82.3 Family history of stroke; Z83.3 Family history of diabetes mellitus; Z90.710 Acquired absence of both cervix and uterus; M19.90 Unspecified osteoarthritis, unspecified site; Z90.49 Acquired absence of other specified parts of digestive tract; Z86.718 Personal history of other venous thrombosis and embolism; Z88.8 Allergy status to other drugs, medicaments and biological substances; Z71.89 Other specified counseling
CPT/HCPCS: 36415; 71010; 71275; 80048; 80076; 80307; 81001; 82553; 82962; 83036; 83690; 83735; 83880; 84443; 84484; 85025; 85379; 85610; 93005; 93971; J1815; Q9967; 99285-25; G0479

== ENCOUNTER 2017-04-24 07:19 | Day surgery (SDC) | payer MEDICARE ==
[~2017-04-24 07:19] MED LIST: LIDOCAINE 1% PF 2 ML VIAL. ID; MORPHINE SULFATE 2 MG/ML DISP.SYRIN. IV; ONDANSETRON PF 4 MG/2 ML VIAL. IV; PROCHLORPERAZINE 10 MG/2 ML VIAL. IV; fentaNYL PF VIAL 100 MCG/2 ML VIAL IV
[2017-04-24 08:08] LABS: POC GLUCOSE 121 mg/dL (70-99)
[2017-04-24] MEDS: IV RINGERS,LACTATED 1000ML 1,000 ML IV (08:11)
[2017-04-24] MEDS ORDERED: PROPOFOL 20 ML IV (08:42)
[2017-04-24] MEDS ORDERED: LIDOCAINE 2% PF Vial for OR 5 ML VIAL. (08:42)
[2017-04-24] MEDS ORDERED: PHENYLEPHRINE in 0.9% NACL PF 1 MG/10 ML SYRINGE. IV (09:59)
[2017-04-24] MEDS ORDERED: DEXAMETHASONE SOD PHOS 20 MG/5 ML VIAL. (10:02)
[2017-04-24] MEDS ORDERED: fentaNYL PF VIAL 100 MCG/2 ML VIAL (10:02)
[2017-04-24] MEDS ORDERED: ONDANSETRON PF 4 MG/2 ML VIAL. (10:02)
[2017-04-24] MEDS: LIDOCAINE 1% PF 30 ML VIAL. (10:03)
[2017-04-24] MEDS ORDERED: SEVOFLURANE 31 TO 60 MINUTES. IH (10:12)
[2017-04-24] MEDS ORDERED: HYDROcodone/APAP 5/325MG 1 TAB TABLET (11:17)
[2017-04-24] MEDS: HYDROcodone/APAP 5/325MG 1 TAB TABLET PO (11:21)
== END 2017-04-24 11:52 | disposition home or self-care (01) ==
LOC: SURG 07:19
DX: M65.331 Trigger finger, right middle finger (principal); I10 Essential (primary) hypertension; E11.9 Type 2 diabetes mellitus without complications; K21.9 Gastro-esophageal reflux disease without esophagitis; K58.9 Irritable bowel syndrome, unspecified; Z86.718 Personal history of other venous thrombosis and embolism; Z90.710 Acquired absence of both cervix and uterus; Z90.722 Acquired absence of ovaries, bilateral; Z90.79 Acquired absence of other genital organ(s); Z90.49 Acquired absence of other specified parts of digestive tract; Z98.890 Other specified postprocedural states; Z83.3 Family history of diabetes mellitus; Z80.0 Family history of malignant neoplasm of digestive organs; Z79.82 Long term (current) use of aspirin; Z79.84 Long term (current) use of oral hypoglycemic drugs
CPT/HCPCS: 26055; 82962; J0690; J1100; J2370; J2405; J2704; J3010

== ENCOUNTER → 2017-12-21 | Outpatient (CLI) | payer MEDICARE ==
[2017-04-24 11:35] VITALS: BP 130/60
[~2017-12-21] MED LIST changes: +ASPI-482 PO; +CALC1TAB PO; +CHOL100013 PO; +DESO60OI7 TP; +ESTR42.53 VG; +FLUT9.9S NS; +HYDR-971 PO; +HYDR12.53 PO; +LACT1CAP6 PO; -LIDOCAINE 1% PF 2 ML VIAL. ID; +LISI10TA2 PO; -MORPHINE SULFATE 2 MG/ML DISP.SYRIN. IV; +MULT-650 PO; +NYST15OI TP; +OMEP2.5S2 PO; -ONDANSETRON PF 4 MG/2 ML VIAL. IV; -PROCHLORPERAZINE 10 MG/2 ML VIAL. IV; +SITA1TAB11 PO; -fentaNYL PF VIAL 100 MCG/2 ML VIAL IV
--- NOTE | 2017-12-21 17:21 | KCIC ---
Bilateral digital screening mammograms with 3-D tomosynthesis: Reason for examination: Routine screening. Comparison is made to previous studies dated 11/29/2016 and 11/25/2015. Bilateral mammograms in CC and oblique projections were obtained with 2-D imaging and 3-D tomosynthesis imaging on a Siemens Inspiration unit and reviewed on the workstation. Interpretation was made with the benefit of CAD. The skin and nipples show no abnormalities. No abnormal axillary lymph nodes are seen. The breast parenchyma shows scattered fatty and fibroglandular density. (Breast density: Category B.) There are no dominant masses, suspicious calcifications or architectural distortion. Benign calcifications are present. Impression: No evidence of malignancy. Recommend routine screening. BI-RAD Category 2: Benign. "Our facility is accredited by the [employer] Mammography Program." This patient's information has been entered into a reminder system for the patient to be notified with the results of her examination and a target date for the next mammogram. Electronically signed by: Rhina Benoit MD (12/21/2017 5:18 PM) [id number]
== END | disposition home or self-care (01) ==
LOC: KCIC MAMMO 11:09
PROVIDERS: ATTEND Family Medicine
DX: Z12.31 Encounter for screening mammogram for malignant neoplasm of breast (principal)
CPT/HCPCS: 77063; 77067

== ENCOUNTER → 2018-12-23 | Outpatient (CLI) | payer MEDICARE ==
[2017-04-24 11:35] VITALS: BP 130/60
[~2018-12-23] MED LIST changes: +HYDR-3164 PO; -HYDR-971 PO; -HYDR12.53 PO; +HYDR12.575 PO
--- NOTE | 2018-12-23 12:55 | KCIC ---
Bilateral digital screening mammograms with 3-D tomosynthesis: Reason for examination: Routine screening. Comparison is made to previous studies dated 12/21/2017 and 11/29/2016. Bilateral mammograms in CC and oblique projections were obtained with 2-D imaging and 3-D tomosynthesis imaging on a Siemens Inspiration unit and reviewed on the workstation. Interpretation was made with the benefit of CAD. The skin and nipples show no abnormalities. No abnormal axillary lymph nodes are seen. The breast parenchyma shows scattered fatty and fibroglandular density. (Breast density: Category B.) There are no dominant masses, suspicious calcifications or architectural distortion. Benign calcifications are present. Impression: No evidence of malignancy. Recommend routine screening. BI-RAD Category 2: Benign. "Our facility is accredited by the [employer] Mammography Program." This patient's information has been entered into a reminder system for the patient to be notified with the results of her examination and a target date for the next mammogram. Electronically signed by: Rhina Benoit MD (12/23/2018 12:52 PM) [id number]
== END | disposition home or self-care (01) ==
LOC: KCIC MAMMO 11:28
PROVIDERS: ATTEND Family Medicine
DX: Z12.31 Encounter for screening mammogram for malignant neoplasm of breast (principal); N64.89 Other specified disorders of breast
CPT/HCPCS: 77063; 77067

== ENCOUNTER → 2019-09-26 | Outpatient (CLI) | payer MEDICARE ==
[2017-04-24 11:35] VITALS: BP 130/60
--- NOTE | 2019-09-26 15:33 | KCIC ---
3 views the cervical spine without comparison for neck pain. FINDINGS: There is no fracture or acute osseous or alignment abnormality identified. The atlantoaxial articulation is intact. Prevertebral soft tissues are grossly unremarkable. There is moderate narrowing of the C5-6 and C6-7 intervertebral disc spaces, with bulky anterior and smaller posterior osteophytes at these levels. Uncovertebral degenerative changes are present at multiple lower levels as well. Carotid artery calcifications are present. IMPRESSION: 1. No acute osseous or alignment abnormality. 2. Multilevel degenerative changes. Electronically signed by: Mega Otero MD (09/26/2019 3:30 PM) [id number]
== END | disposition home or self-care (01) ==
LOC: KCIC 14:00
PROVIDERS: ATTEND Family Medicine
DX: M47.812 Spondylosis without myelopathy or radiculopathy, cervical region (principal); M48.02 Spinal stenosis, cervical region; M50.323 Other cervical disc degeneration at C6-C7 level; M25.78 Osteophyte, vertebrae; I65.29 Occlusion and stenosis of unspecified carotid artery
CPT/HCPCS: 72040

== ENCOUNTER → 2019-12-25 | Outpatient (CLI) | payer MEDICARE ==
[2017-04-24 11:35] VITALS: BP 130/60
--- NOTE | 2019-12-25 13:35 | KCIC ---
Bilateral digital screening mammograms: Reason for examination: Routine screening. Comparison is made to previous studies dated back to 11/25/2015. Interpretation was made with the benefit of CAD. The skin and nipples show no abnormalities. No abnormal axillary lymph nodes are seen. The breast parenchyma shows scattered fibroglandular density. (Breast density: Category B.) There appears to be a small nodular density medially in the left cc view measuring approximately 5.6 mm in size. This is probably at the 8:00 B position approximately 9 cm from the nipple. Further evaluation with ultrasound is recommended. There are no other dominant masses, suspicious calcifications or architectural distortions. Some benign calcifications are present bilaterally which are unchanged. Impression: 5.6 mm nodule in the medial left breast probably at the 8:00 B position 9 cm from the nipple. Recommend further evaluation with ultrasound. BI-RADS Category 0: Incomplete. Needs additional imaging evaluation. "Our facility is accredited by the [employer] Mammography Program." This patient's information has been entered into a reminder system for the patient to be notified with the results of her examination and a target date for the next mammogram. Electronically signed by: Rhina Benoit MD (12/25/2019 1:32 PM) [email or web address]
== END ==
LOC: KCIC MAMMO 12:22
PROVIDERS: ATTEND Family Medicine
DX: Z12.31 Encounter for screening mammogram for malignant neoplasm of breast (principal); N64.89 Other specified disorders of breast
CPT/HCPCS: 77067

== ENCOUNTER → 2020-01-07 | Outpatient (CLI) | payer MEDICARE ==
[2017-04-24 11:35] VITALS: BP 130/60
--- NOTE | 2020-01-07 15:40 | KCIC ---
Left breast ultrasound: Reason for examination: Nodular density on screening mammogram. Comparison is made to mammographic exam dated 12/25/2019. Ultrasound examination of the left breast and axilla was performed. No discrete cystic or solid nodules or architectural distortions are seen. There is some ductal ectasia. No abnormal appearing lymph nodes are seen in the axilla. IMPRESSION: No suspicious abnormality seen in the left breast. Recommend routine mammographic follow-up. BI-RADS Category 2: Benign. "Our facility is accredited by the [employer] Mammography Program." This patient's information has been entered into a reminder system for the patient to be notified with the results of her examination and a target date for the next mammogram. Electronically signed by: Rhina Benoit MD (01/07/2020 3:37 PM) [email or web address]
== END ==
LOC: KCIC US 08:03
PROVIDERS: ATTEND Family Medicine
DX: R92.8 Other abnormal and inconclusive findings on diagnostic imaging of breast (principal)
CPT/HCPCS: 76641

== ENCOUNTER → 2020-11-11 | Outpatient (CLI) | payer MEDICARE ==
[2017-04-24 11:35] VITALS: BP 130/60
[~2020-11-11] MED LIST changes: +LISI10TA16 PO; -LISI10TA2 PO
--- NOTE | 2020-11-11 10:55 | RAD ---
EXAM: Left lower extremity venous Doppler sonogram. HISTORY: Pain and swelling. TECHNIQUE: Handley scale and color Doppler sonographic evaluation of the left lower extremity veins with spectral waveform analysis was performed. FINDINGS: There is normal color flow, normal compressibility and there are normal spectral waveforms in the common femoral, superficial femoral, popliteal, and posterior tibial veins. The greater saphen ous vein is not seen, likely due to a prior venous stripping procedure. IMPRESSION: No Doppler evidence of lower extremity deep venous thrombosis. Electronically signed by: Carlyn Marina MD (11/11/2020 10:52 AM) [id number]
== END ==
LOC: US 16:06
PROVIDERS: ATTEND Family Medicine
DX: M79.89 Other specified soft tissue disorders (principal)
CPT/HCPCS: 93971

== ENCOUNTER → 2021-01-07 | Outpatient (CLI) | payer MEDICARE ==
[2017-04-24 11:35] VITALS: BP 130/60
--- NOTE | 2021-01-07 13:09 | KCIC ---
Bilateral digital screening mammograms: Reason for examination: Routine screening. Comparison is made to previous studies dated back to 11/23/2014. Interpretation was made with the benefit of CAD. The skin and nipples show no abnormalities. No abnormal axillary lymph nodes are seen. The breast par enchyma shows scattered fibroglandular density. (Breast density: Category B.) There are no new domina nt masses, suspicious calcifications or architectural distortions. Some benign calcifications are pre sent. Impression: No evidence of malignancy. Recommend routine screening. BI-RADS category 2: Benign "Our facility is accredited by the [employer] Mammography Program." This patient's information has been entered into a reminder system for the patient to be notified wit h the results of her examination and a target date for the next mammogram. Electronically signed by: Rhina Benoit MD (01/07/2021 1:06 PM) [email or web address]
== END ==
LOC: KCIC MAMMO 12:19
PROVIDERS: ATTEND Family Medicine
DX: Z12.31 Encounter for screening mammogram for malignant neoplasm of breast (principal)
CPT/HCPCS: 77067